=== PATIENT | female | born 1950 | race Caucasian/White ===

== ENCOUNTER 2023-09-24 21:02 | Inpatient (IN) | payer MEDICARE ==
[~2023-09-24] VITALS: Ht 160 cm; Wt 65.0 kg
[~2023-09-24 21:02] MED LIST: AMOXICILLIN500 MG PO; AUGMENTIN500TAB PO; AUGMENTIN875TAB PO; CLARITHROMYC500 MG PO; CLARITIN10 M1 PO; CORTISPORIN OTI10 ML AD; OMNICEF300 MG PO; ZITHROMAX500 MG PO
--- NOTE | 2023-09-24 21:33 | NUR ---
ambulatory to room 6 with family members. sent to br to get urine. change to gown.
[2023-09-24] MEDS ORDERED: MORPHINE SULFATE 4 MG/ML VIAL IV ONE (21:50)
[2023-09-24] MEDS ORDERED: SODIUM CHLORIDE 0.9% 1,000 ML IV ONE (21:50)
[2023-09-24] MEDS ORDERED: ONDANSETRON HCl 4 MG/2 ML SDV IV ONE (21:50)
--- NOTE | 2023-09-24 22:10 | NUR ---
AT BEDSIDE FOR TRIAGE.
[2023-09-24 22:11] VITALS: BP 164/79
[2023-09-24 22:15] LABS: BASO% 0.2 % (0-3); EOS% 0.1 % (0-8); HEMATOCRIT 40.4 % (37.0-47.0); HEMOGLOBIN 13.2 g/dl (12.0-16.0); IMMATURE GRANULOCYTES 0.1 % (0.0-5.0); LYMPH% 11.8 % (15-41); MEAN CELL VOLUME 87.8 fL CALC (80.0-100.0); MEAN CORPUSCULAR HGB 28.7 pG CALC (26.0-32.0); MEAN CORPUSCULAR HGB CONC 32.7 g/dL CAL (32.0-36.0); MONO% 7.1 % (2-13); NEUT# 11.52 thou/uL (2.00-7.15); NEUT% 80.7 % (42-76); RED BLOOD COUNT 4.6 mill/uL (4.20-5.60); RED CELL DISTRI WIDTH 12.5 % (11.5-15.5)
[2023-09-24 22:16] LABS: URINE BILIRUBIN - DIPSTICK Negative (NEGATIVE); URINE BLOOD DIPSTICK Negative (NEGATIVE); URINE GLUCOSE - DIPSTICK Negative (NEGATIVE); URINE KETONE 15 mg/dL (NEGATIVE); URINE NITRITE - DIPSTICK Negative (Negative); URINE PH 8.5 (4.5-8.0); URINE PROTEIN - DIPSTICK 30 mg/dL (NEG-TRACE); URINE SPECIFIC GRAVITY 1.015; URINE UROBILINOGEN - DIPSTICK 0.2 E.U./dL (0.2)
[2023-09-24 22:17] LABS: URINE COLOR Yellow; URINE LEUK ESTERASE Small (NEGATIVE)
[2023-09-24 22:24] LABS: URINE RBC 0-2 RBC/hpf (0-5); URINE SQUAMOUS EPITHELIAL CELL FEW EPI/hpf (0-FEW)
[2023-09-24 22:31] VITALS: BP 159/73
[2023-09-24 22:40] LABS: INTERNATIONAL NORMALIZED RATIO 1.1 RATIO (0.7-1.3)
[2023-09-24 22:42] LABS: ALBUMIN 4.5 g/dL (3.2-5.0); ALKALINE PHOSPHATASE 121 u/l (38-126); ANION GAP 13 (6-22 (CALC)); BUN 19 mg/dL (8-23); BUN/CREATININE RATIO 19 (12-20 (CALC)); CARBON DIOXIDE 22 mmol/l (22-30); CHLORIDE 108 mmol/l (95-108); CPK 72 u/l (30-135); ESTIMATED GFR 60 ML/MIN (>=90 (CALC)); MAGNESIUM 2.1 mg/dL (1.6-2.3); POTASSIUM 3.9 mmol/l (3.5-5.1); SGOT/AST 40 u/l (9-36); SODIUM 139 mmol/l (137-146); TOTAL PROTEIN 9.1 g/dL (6.3-8.2)
[2023-09-24 22:47] LABS: PROTHROMBIN TIME 10.5 SECONDS (9.0-12.5)
[2023-09-24 22:54] LABS: BILIRUBIN, TOTAL 0.7 mg/dL (0.02-1.3)
[2023-09-24 23:00] VITALS: BP 156/70
[2023-09-25] VITALS (8 sets, daily range): BP systolic 128–160; BP diastolic 49–76
--- NOTE | 2023-09-25 | NUR ---
PT RETURNED FROM CT. NAD. VSS.
[2023-09-25] MEDS ORDERED: MORPHINE SULFATE 4 MG/ML VIAL IV ONE ×3 (00:10→02:55)
[2023-09-25 00:16] LABS: LIPASE 61623 u/l (23-300)
[2023-09-25] MEDS ORDERED: SODIUM CHLORIDE 0.9% 1,000 ML IV ONE (00:20)
[2023-09-25] MEDS ORDERED: ONDANSETRON HCl 4 MG/2 ML SDV IV ONE ×2 (00:20→02:55)
--- NOTE | 2023-09-25 00:40 | NUR ---
PT UP TO BR TO VOID WITH GRANDCHILD. TOLERATED WELL.
--- NOTE | 2023-09-25 02:11 | NUR ---
TO BEDSIDE TO DISCUSS RESULTS OF SCAN/LABS. PLAN OF CARE.
[2023-09-25] MEDS ORDERED: SODIUM CHLORIDE 0.9% 1,000 ML IV PRN (02:20)
[2023-09-25] MEDS ORDERED: FAMOTIDINE 10MG/ML 2ML SDV IV PRN (02:20)
[2023-09-25] MEDS ORDERED: MAGNESIUM HYDROXIDE 30 ML UDC PO PRN ×2 (02:20→06:40)
[2023-09-25] MEDS ORDERED: ALUM & MAG HYDROX-SIMETHICONE 30 ML PO PRN (02:20)
[2023-09-25] MEDS ORDERED: ONDANSETRON 4 MG/TAB ODT PO PRN (02:20)
[2023-09-25] MEDS ORDERED: IBUPROFEN 800 MG/TAB PO PRN (02:20)
[2023-09-25] MEDS ORDERED: ONDANSETRON HCl 4 MG/2 ML SDV IV PRN (02:20)
--- NOTE | 2023-09-25 03:47 | NUR ---
REPORT CALLED TO FLOOR.
--- NOTE | 2023-09-25 04:00 | NUR ---
TO FLOOR VIA W/C WITH POCKET MONITOR/IVF INFUSING.
--- NOTE | 2023-09-25 04:30 | NUR ---
RECEIVED PATIENT ALERT ORIENTED X4. RESP EVEN AND UNLABORED. ABDOMEN TENDER, STATES PAIN IS AT TOLERABLE LEVEL CURRENTLY. NS INFUSING ORDERED. DENIES HOME MEDICATIONS. DENIES PAST MEDICAL HISTORY EXCEPT MITRIAL VALVE PROLAPSE. CALL LIGHT IN REACH.
[2023-09-25] MEDS ORDERED: MORPHINE SULFATE 4 MG/ML VIAL IV PRN (06:40)
[2023-09-25] MEDS ORDERED: ACETAMINOPHEN 325 MG/TAB PO PRN (06:40)
--- NOTE | 2023-09-25 08:00 | NUR ---
PT IN BED WITH HOB UP. PT IS ALERT AND ORIENTED X 3. PT HAS NO C/O PAIN AT THIS TIME. PT IV SITE TO RAC CLEAN AND INTACT WITH NS INFUSING @ 125 ML/HR. PT REMAINS NPO AT THIS TIME. PT AMBUALTES TO BATHROOM FOR ALL TOILETING NEEDS. PT HAS CALL LIGHT WITHIN REACH AND SAFETY MEASURES IN PLACE AT THIS TIME.
[2023-09-25] MEDS ORDERED: Pantoprazole Sodium 40 MG VIAL (Protonix) IV SCH (09:00)
--- NOTE | 2023-09-25 12:00 | NUR ---
PT IN BED WITH FAMILY IN RM AT BEDSIDE. PT HAS NO C/O PAIN AT THIS TIME. PT IS AWAITING U/S. PT HAS CALL LIGHT WITHIN REACH AND SAFETY MEASURES IN PLACE AT THIS TIME.
--- NOTE | 2023-09-25 16:00 | NUR ---
PT IN BED RESTING, EYES OPENED TO VOICE. PT HAS NO C/O PAIN AT THIS TIME. PT HAS CALL LIGHT WITHIN REACH AND SAFETY MEASURES IN PLACE AT THIS TIME.
--- NOTE | 2023-09-25 20:00 | NUR ---
BEDSIDE SHIFT REPORT COMPLETED. RESP EVEN AND UNLABORED. DENIES PAIN, NAUSEA. AMBULATORY TO BATHROOM WITH STEADY GAIT. CALL LIGHT IN REACH.
[2023-09-26] VITALS (9 sets, daily range): BP systolic 132–150; BP diastolic 54–70
--- NOTE | 2023-09-26 | NUR ---
RESTING IN BED. RESP EVEN AND UNLABORED. DENIES PAIN OR DISCOMFORT. CALL LIGHT IN REACH.
[2023-09-26 05:05] LABS: BASO% 0.2 % (0-3); EOS% 0.1 % (0-8); HEMATOCRIT 37.6 % (37.0-47.0); HEMOGLOBIN 12.1 g/dl (12.0-16.0); IMMATURE GRANULOCYTES 0.4 % (0.0-5.0); LYMPH% 11.2 % (15-41); MEAN CELL VOLUME 90.4 fL CALC (80.0-100.0); MEAN CORPUSCULAR HGB 29.1 pG CALC (26.0-32.0); MEAN CORPUSCULAR HGB CONC 32.2 g/dL CAL (32.0-36.0); MONO% 9.2 % (2-13); NEUT# 15.32 thou/uL (2.00-7.15); NEUT% 78.9 % (42-76); RED BLOOD COUNT 4.16 mill/uL (4.20-5.60)
--- NOTE | 2023-09-26 05:27 | NUR ---
SLEPT WELL DURING NIGHT. NO C/O NAUSEA OR ABDOMINAL PAIN. CALL LIGHT IN REACH. AWAITING SURGICAL CONSULT.
[2023-09-26 05:48] LABS: BILIRUBIN, TOTAL 0.8 mg/dL (0.02-1.3); CHOLESTEROL HDL RATIO 3.4 (<4.4 (CALC)); CREATININE 0.9 mg/dL (0.5-1.0); MAGNESIUM 1.8 mg/dL (1.6-2.3); POTASSIUM 3.9 mmol/l (3.5-5.1)
[2023-09-26 05:52] LABS: ALBUMIN 3.5 g/dL (3.2-5.0)
--- NOTE | 2023-09-26 08:00 | NUR ---
PT IN BED WITH BED WITH HOB UP. PT IS ALERT AND ORIENTED X 3. PT HAD APPLE JUICE ON CLEAR LIQUID DIET, TOLERATED WELL. PT HAS NO C/O PAIN AT THIS TIME. PT DENIES N/V AT THIS TIME. PT IV SITE CDI WITH NS INFUSING @ 125 ML/HR. PT AMBULATES WELL TO BATHROOM FOR ALL TOILETING NEEDS. PT HAS CALL LIGHT WITHIN REACH AND SAFETY MEASURES IN PLACE AT THIS TIME.
[2023-09-26] MEDS ORDERED: PIPERACILLIN Sodium-Tazobactam 3.375 GM in SODIUM CHLORIDE 0.9% 100 ML IV SCH (09:00)
--- NOTE | 2023-09-26 12:00 | NUR ---
PT SITTING UP IN BED, EATING SMALL AMOUNT OF CLEAR LIQUID AND TOLERATING. PT HAS NO C/O PAIN AT THIS TIME. PT HAS CALL LIGHT WITHIN REACH AND SAFETY MEASURES IN PLACE AT THIS TIME.
--- NOTE | 2023-09-26 16:00 | NUR ---
PT IN BED WITH HOB UP RESTING, EYES OPENED TO VOICE. PT HAS NO C/O PAIN N/V AT THIS TIME. PT HAS CALL LIGHT WITHIN REACH AND SAFETY MEASURES IN PLACE AT THIS TIME.
--- NOTE | 2023-09-26 20:00 | NUR ---
BEDSIDE SHIFT REPORT COMPLETED. NO C/O NOTED. CALL LIGHT WITHIN REACH. AMBULATORY REQUIRING NO ASSISTANCE.
--- NOTE | 2023-09-27 | NUR ---
resting in bed with eyes closed. saline loc to right ac leaking. iv site removed. new 20g inserted in right forearm. tolerated well. medicated with morphine for c/o lower back pain with good results.
[2023-09-27 04:30] VITALS: BP 146/69
--- NOTE | 2023-09-27 04:40 | NUR ---
patient ambulated to rest room with minimal assistance. complained of slight lower back pain but refused offer of pain medication. call light with in reach and bed in lowest position.
[2023-09-27 05:21] LABS: BASO% 0.3 % (0-3); EOS% 0.6 % (0-8); IMMATURE GRANULOCYTES 0.4 % (0.0-5.0); LYMPH% 10.4 % (15-41); MEAN CELL VOLUME 91.6 fL CALC (80.0-100.0); MEAN CORPUSCULAR HGB 29.6 pG CALC (26.0-32.0); MEAN CORPUSCULAR HGB CONC 32.4 g/dL CAL (32.0-36.0); NEUT# 13.39 thou/uL (2.00-7.15); NEUT% 79.3 % (42-76); RED BLOOD COUNT 3.71 mill/uL (4.20-5.60); RED CELL DISTRI WIDTH 12.9 % (11.5-15.5)
[2023-09-27 05:57] LABS: ALBUMIN 3.2 g/dL (3.2-5.0); CREATININE 0.9 mg/dL (0.5-1.0); MAGNESIUM 1.9 mg/dL (1.6-2.3); POTASSIUM 3.7 mmol/l (3.5-5.1); TOTAL PROTEIN 6.5 g/dL (6.3-8.2)
--- NOTE | 2023-09-27 06:55 | NUR ---
REPORT RECEIVED FROM CHANTELLERN
[2023-09-27 07:04] VITALS: BP 147/72
--- NOTE | 2023-09-27 08:00 | NUR ---
PT RESTING AT BEDSIDE EATING BREAKFAST,A&O X3;ASSESSMENT COMPLETED;PT REPORTS BACK PAIN AND ABDOMEN PAIN RATING 3/10 ON THE PAIN SCALE AND IS MEDICATED WITH PRN TYLENOL 650MG PO PER REQUEST;RESPIRATIONS EVEN AND UNLABORED ON RA,CLEAR LUNG SOUNDS;ABDOMEN SOFT ON PALPATION AND ACTIVE IN ALL 4 QUADRANTS, LEFT QUAD TENDERNESS NOTED;STRONG PEDAL PULSES;SKIN INTACT;TELE MONITORING IN PLACE;#20G TO RFA INFUSING NS @ 80ML/HR,SITE APPEARS HEALTHY;PT DENIES ANY ADDITIONAL NEEDS AND IS ENCOURAGED TO CALL FOR ASSISTANCE IF NEEDED;FALL PRECAUTIONS IN PLACE WITH BED IN THE LOWEST POSITION AND CALL LIGHT IN REACH;FREQUENT ROUNDS MADE.
--- NOTE | 2023-09-27 08:36 | NUR ---
AT BEDSIDE DISCUSSING POC WITH PT.
--- NOTE | 2023-09-27 09:50 | NUR ---
ALL DISCHARGE INSTRUCTIONS PROVIDED AT THIS TIME;PT INSTRUCTED TO F/U WITH (OFFICE NUMBER PROVIDED) AND PCP. PT ALSO INSTRUCTED TO ADVANCE DIET TOLERATED. PT VERBALIZES UNDERSTANDING AND DENIES ANY ADDITIONAL QUESTIONS OR NEEDS;IV SITE REMOVED WITH CATHETER INTACT AND TELE MONITORING D/C;WC TO BE PROVIDED FOR D/C HOME;SPOUSE TO TRANSPORT PT HOME;FREQUENT ROUNDS MADE.
--- NOTE | 2023-09-27 09:53 | NUR ---
Discharge instructions given. Patient verbalizes understanding of same. Discharged in stable condition via Wheelchair to Home with spouse. All belongings sent with pt. [facility] VIA ACCOMPANIED BY SPOUSE,GRABD DAUGHTER, AND KENDRICK GUDINO. ALL PERSONAL BELONGINGS LEFT WITH PT AT THIS TIME.
--- NOTE | 2023-09-29 12:06 | NUR ---
Discharge follow up call completed 09/29/23. Patient states she is doing well and improving daily. No medication was prescribed for patient at discharge. Patient has a follow up appointment with her surgeon on 10/03/23. No needs or concerns verbalized at this time.
== END 2023-09-27 09:54 | disposition home or self-care (01) | DRG 440 ==
LOC: ED 21:02 → ED-I 21:53 → ED 09-25 02:20 → MS2 09-25 02:21
PROVIDERS: Internal Medicine; Nurse Practitioner Family; ADMIT Student in an Organized Health Care Education/Training Program; ATTEND Student in an Organized Health Care Education/Training Program
DX: K85.90 Acute pancreatitis without necrosis or infection, unspecified (principal); K82.8 Other specified diseases of gallbladder; D72.825 Bandemia
CPT/HCPCS: J2470; Q9967